=== PATIENT | male | born 1955 | race Caucasian/White ===

== ENCOUNTER → 2017-01-19 | Outpatient (REF) | payer OTHER ==
[~2017-01-19] MED LIST: ACET65TA OR; ADVIL OR; FLOM5CAP PO
[2017-01-19 15:54] LABS: ALBUMIN 3.7 GM/DL (3.2-5.2); ALBUMIN/GLOBULIN RATIO 1.16 (1.00-1.93); ALKALINE PHOSPHATASE 88 U/L (45-117); ALT/SGPT 19 U/L (12-78); ANION GAP 5 MEQ/L (8-16); AST/SGOT 14 U/L (15-37); BILIRUBIN,TOTAL 0.8 MG/DL (0.2-1.0); BLOOD UREA NITROGEN 18 MG/DL (7-18); CALCIUM LEVEL 8.5 MG/DL (8.8-10.2); CARBON DIOXIDE LEVEL 31 MEQ/L (21-32); CHLORIDE LEVEL 105 MEQ/L (98-107); CHOLESTEROL LEVEL 234 MG/DL (<200); GLOMERULAR FILTRATION RATE > 60.0 (>49); GLUCOSE, FASTING 71 MG/DL (80-110); SODIUM LEVEL 141 MEQ/L (136-145); TOTAL PROTEIN 6.9 GM/DL (6.4-8.2); TRIGLYCERIDES LEVEL 134 MG/DL (<150)
[2017-01-19 15:55] LABS: MEAN CORPUSCULAR HEMOGLOBIN 31.8 pg (27.0-33.0); MEAN CORPUSCULAR HGB CONC 34.5 g/dl (32.0-36.5); MEAN CORPUSCULAR VOLUME 92.2 fl (80.0-96.0); RED CELL DISTRIBUTION WIDTH 13.2 % (11.5-14.5); WHITE BLOOD COUNT 6.4 K/mm3 (4.0-10.0)
== END ==
LOC: M SFHCPLAZ 11:04
PROVIDERS: ATTEND Internal Medicine
DX: Z00.00 Encounter for general adult medical examination without abnormal findings (principal); E78.00 Pure hypercholesterolemia, unspecified; N40.1 Benign prostatic hyperplasia with lower urinary tract symptoms

== ENCOUNTER 2017-02-05 08:16 | Emergency (ER) | payer OTHER ==
[~2017-02-05] VITALS: Ht 172.7 cm; Wt 70.4 kg
[2017-02-05] MEDS ORDERED: MYRB25TA PO (08:27)
[2017-02-05 09:24] LABS: BASO % 0.7 % (0.0-1.0); EOS % 0.3 % (0.0-3.0); LARGE UNSTAINED CELL # 0.1 K/mm3 (0.0-0.4); LARGE UNSTAINED CELL % 1.5 % (0.0-4.0); LYMPH # 0.8 K/mm3 (1.5-4.5); LYMPH % 12.2 % (24.0-44.0); MEAN CORPUSCULAR HEMOGLOBIN 31.8 pg (27.0-33.0); MEAN CORPUSCULAR HGB CONC 34.7 g/dl (32.0-36.5); MEAN CORPUSCULAR VOLUME 91.7 fl (80.0-96.0); MONO # 0.3 K/mm3 (0.0-0.8); MONO % 4.1 % (0.0-5.0); NEUTROPHILS # 5.2 K/mm3 (1.8-7.7); NEUTROPHILS % 81.1 % (36.0-66.0); PLATELET COUNT, AUTOMATED 148 k/mm3 (150-450); WHITE BLOOD COUNT 6.4 K/mm3 (4.0-10.0)
[2017-02-05 09:38] LABS: ALBUMIN 3.7 GM/DL (3.2-5.2); ALBUMIN/GLOBULIN RATIO 1.19 (1.00-1.93); ALKALINE PHOSPHATASE 83 U/L (45-117); ALT/SGPT 18 U/L (12-78); ANION GAP 8 MEQ/L (8-16); AST/SGOT 14 U/L (15-37); BILIRUBIN,TOTAL 1.2 MG/DL (0.2-1.0); BLOOD UREA NITROGEN 17 MG/DL (7-18); CALCIUM LEVEL 8.7 MG/DL (8.8-10.2); CARBON DIOXIDE LEVEL 27 MEQ/L (21-32); CHLORIDE LEVEL 105 MEQ/L (98-107); CREATININE FOR GFR 1.01 MG/DL (0.70-1.30); GLOMERULAR FILTRATION RATE > 60.0 (>49); GLUCOSE, FASTING 108 MG/DL (80-110); POTASSIUM SERUM 3.8 MEQ/L (3.5-5.1); SODIUM LEVEL 140 MEQ/L (136-145); TOTAL PROTEIN 6.8 GM/DL (6.4-8.2)
--- NOTE | 2017-02-05 09:42 | REP ---
CT abdomen pelvis without IV or bowel contrast: Comparison is a CT of the pelvis dated 05/09/2010. On the comparison study there was a mass in the ascending colon. The patient has had an interim right hemicolectomy and there is a circumferential surgical staple ring in the proximal transverse colon compatible with enterocolostomy. There is no mesenteric or retroperitoneal adenopathy. There is no ascites. There is a Cruz catheter in the bladder and the bladder is collapsed. There is no hydronephrosis on the right on the left. The unenhanced kidneys are otherwise unremarkable. No renal calculi are identified. On the comparison study with IV contrast. There is a mass in the dome of the liver compatible with hemangioma. This mass is faintly visible on the study today without IV contrast and appears unchanged in size. The hepatic parenchyma is otherwise homogeneous and unremarkable. The gallbladder, pancreas and spleen are unremarkable. The visualized lung rainey are unremarkable except for dependent atelectasis. The adrenals and abdominal aorta and bowel are otherwise unremarkable. Pelvis: There is no ascites or adenopathy. There is a Cruz fat in the bladder. Impression: There is no hydronephrosis. There is a Cruz catheter in the bladder and the bladder is collapsed. There are no renal calculi. In the absence of IV contrast the study is insensitive for renal masses. There is a faintly visible low density mass in the dome of the liver, unchanged from the comparison study as discussed in the body of the report. There is no adenopathy or ascites. There has been a right hemicolectomy with an enterocolostomy in the proximal transverse colon. Signed by David Serrano MD 02/05/2017 09:34 A
[2017-02-05] MEDS ORDERED: BACT800T5 PO (09:48)
[2017-02-05 12:00] VITALS: BP 100/68
--- NOTE | 2017-02-05 18:59 | ED PDOC ---
Post-Departure Follow-Up dr lopez faxed formal report of ct abd/p for fu Doreen Montano MD Feb 05, 2017 18:59
[2017-03-10] MEDS ORDERED: CIAL20TA PO (09:21)
[2017-03-10] MEDS ORDERED: FLON1SPR (09:21)
[2017-03-10] MEDS ORDERED: CVS5TAB13 PO (10:03)
== END 2017-02-05 12:02 | disposition home or self-care (01) ==
LOC: M ED 09:00
DX: R33.9 Retention of urine, unspecified (principal); N40.0 Benign prostatic hyperplasia without lower urinary tract symptoms; E78.00 Pure hypercholesterolemia, unspecified; M54.9 Dorsalgia, unspecified; Z79.899 Other long term (current) drug therapy

== ENCOUNTER 2017-02-06 07:10 | Emergency (ER) | payer OTHER ==
[~2017-02-06] VITALS: Ht 172.7 cm; Wt 70.5 kg
[~2017-02-06 07:10] MED LIST changes: +BACT800T5 PO; +MYRB25TA PO
[2017-02-06 08:39] VITALS: BP 102/63
[2017-03-10] MEDS ORDERED: FLON1SPR (09:21)
[2017-03-10] MEDS ORDERED: CIAL20TA PO (09:21)
[2017-03-10] MEDS ORDERED: CVS5TAB13 PO (10:03)
== END 2017-02-06 08:50 | disposition home or self-care (01) ==
LOC: M ED 08:07
DX: R33.8 Other retention of urine (principal); N40.1 Benign prostatic hyperplasia with lower urinary tract symptoms; Z79.899 Other long term (current) drug therapy

== ENCOUNTER → 2017-02-26 | Outpatient (CLI) | payer OTHER ==
[~2017-02-26] MED LIST changes: +CIAL20TA PO; +CIPR500T3; +CVS5TAB13 PO; +FLON1SPR; +NORCOTAB PO; +ONDA4TAB5
[2017-02-26 10:45] LABS: MEAN CORPUSCULAR HEMOGLOBIN 31.7 pg (27.0-33.0); MEAN CORPUSCULAR HGB CONC 34.4 g/dl (32.0-36.5); MEAN CORPUSCULAR VOLUME 92.2 fl (80.0-96.0); WHITE BLOOD COUNT 5.5 K/mm3 (4.0-10.0)
[2017-02-26 10:53] LABS: INR 1.08
[2017-02-26 11:10] LABS: ANION GAP 4 MEQ/L (8-16); BLOOD UREA NITROGEN 23 MG/DL (7-18); CALCIUM LEVEL 8.8 MG/DL (8.8-10.2); CARBON DIOXIDE LEVEL 31 MEQ/L (21-32); CHLORIDE LEVEL 105 MEQ/L (98-107); GLOMERULAR FILTRATION RATE > 60.0 (>49); GLUCOSE, FASTING 103 MG/DL (80-110); POTASSIUM SERUM 4.3 MEQ/L (3.5-5.1); SODIUM LEVEL 140 MEQ/L (136-145)
--- NOTE | 2017-02-26 15:26 | ECGEPIP ---
Stationary ECG Study [facility] Test Date: 2017-02-26 Pat Name: SEDRICK MCLEAN Department: Room: - Gender: M [employer]: LEO : 1955 Requested By: REINA Borja Order Number: [id number] Reading MD: Garland Abebe Measurements Intervals [place] Rate: 68 P: 49 WI: 156 QRS: 58 QRSD: 91 T: 57 QT: 378 QTc: 405 Interpretive Statements SINUS RHYTHM Within normal limits. No prior ECG available for comparison at the time of interpretation. Electronically Signed On 02-26-2017 15:26:16 EDT by Garland Abebe
--- NOTE | 2017-02-27 06:32 | REP ---
Clinical: Colon polyp/mass. Technique: PA and lateral. Comparison: 06/21/2010. Findings: Mediastinum and cardiac silhouette are stable. Chronic interstitial changes are appreciated with superimposed scattered alveolar and reticulonodular infiltrates. No effusion. No pneumothorax. Skeletal structures intact. Impression: Diffuse bilateral subtle alveolar and reticulonodular interstitial infiltrates. Correlation with auscultation and chest CT are recommended. Signed by Kishan Maciel MD 02/27/2017 03:14 A
== END ==
LOC: M LAB 10:00
PROVIDERS: ATTEND Urology
DX: Z01.812 Encounter for preprocedural laboratory examination (principal); N40.1 Benign prostatic hyperplasia with lower urinary tract symptoms; R91.8 Other nonspecific abnormal finding of lung field

== ENCOUNTER → 2017-03-04 | Outpatient (CLI) | payer OTHER ==
--- NOTE | 2017-03-04 10:03 | REP ---
CT STUDY OF THE CHEST WITHOUT CONTRAST: HISTORY: Abnormal chest x-ray. Comparison chest x-ray February 26, 2017. There is also a chest x-ray reviewed from June 21, 2010. CT FINDINGS: Lung window settings confirm the presence of innumerable reticulonodular opacities scattered throughout the upper and lower lobes bilaterally. These are predominantly distributed in a dayne bronchovascular pattern. The largest nodular opacity is in the left upper lobe measuring 8 mm. There is fairly extensive bilateral hilar and mediastinal lymphadenopathy with multiple calcifications noted within most of the enlarged lymph nodes. No anterior mediastinal adenopathy is seen. The spleen are normal in size and homogeneous as visualized. There is a low-density lesion in the dome of the liver in the right lobe. This it is unchanged from the [address] study of the abdomen when it was felt to be compatible with a hemangioma. The visualized upper abdominal structures are otherwise unremarkable. No bony destructive lesion is seen. IMPRESSION: Bilateral hilar and mediastinal lymphadenopathy with lymph node calcification. Multiple reticulonodular densities throughout the lung rainey. Findings are most compatible with sarcoidosis but other granulomatous disease and fungal disease would be a possibility as well. Signed by Bacilio Larkin MD 03/04/2017 10:49 A
== END ==
LOC: M RAD 07:55
PROVIDERS: ATTEND Internal Medicine
DX: R93.8 Abnormal findings on diagnostic imaging of other specified body structures (principal)

== ENCOUNTER → 2017-03-10 | Outpatient (REF) | payer OTHER | LOC: M SFHCPLAZ 12:19 | PROVIDERS: ATTEND Internal Medicine | DX: D86.9 Sarcoidosis, unspecified (principal) ==

== ENCOUNTER → 2017-03-12 | Outpatient (REF) | payer OTHER | LOC: M SMT 15:14 | PROVIDERS: ATTEND Urology | DX: Z01.812 Encounter for preprocedural laboratory examination (principal); N40.1 Benign prostatic hyperplasia with lower urinary tract symptoms; N39.0 Urinary tract infection, site not specified ==

== ENCOUNTER → 2017-03-16 | Day surgery (SDC) | payer OTHER ==
[~2017-03-16] VITALS: Ht 172.7 cm; Wt 70.3 kg
[~2017-03-16] MED LIST changes: +FUROSEMIDE 100 MG/10 ML VIAL (J1940) As Ordered ONE; +GLYCOPYRROLATE INJ 0.2 MG/ML 2 ML VIAL As Ordered ONE; +LIDOCAINE 2% INJ 100 MG/5 ML SDV (FOR ANES.) As Ordered ONE; +LR 1,000 ML IV SCH; +MIDAZOLAM INJ 2 MG/2 ML VIAL (J2250) As Ordered ONE; +NEOSTIGMINE 1MG/ML 5 ML SYRINGE (J2710) As Ordered ONE; +ONDANSETRON 4MG/2ML VIAL (J2405) As Ordered ONE; +ONDANSETRON 4MG/2ML VIAL (J2405) IV PRN; +PHENYLephrine HCL 500 MCG/5 ML (100MCG/ML) SYRINGE (J2370) As Ordered ONE; +PROPOFOL 200 MG/20 ML VIAL As Ordered ONE; +ROCURONIUM BROMIDE 50 MG/5 ML VIAL/SYRINGE As Ordered ONE; +dexameTHASONE 4 MG/ML 1ML VIAL (J1100) As Ordered ONE; +ePHEDrine SULFATE 25 MG/5 ML(5MG/ML) SYRINGE As Ordered ONE; +fentaNYL 100 MCG/2 ML INJECTION (J3010) As Ordered ONE; +fentaNYL 100 MCG/2 ML INJECTION (J3010) IV PRN; +fentaNYL 250 MCG/5 ML INJECTION (J3010) As Ordered ONE
[2017-03-16 14:52] VITALS: BP 100/66
--- NOTE | 2017-03-17 10:49 | RO ---
DATE OF PROCEDURE: 03/16/2017 PREPROCEDURE DIAGNOSIS: Benign prostatic hyperplasia with urinary retention. POSTPROCEDURE DIAGNOSIS: Benign prostatic hyperplasia with urinary retention. PROCEDURE: Cystoscope, button transurethral electrovaporization of the prostate. SURGEON: Fabrice Frankel MD PHLEBOTOMY TECHNOLOGIST: None ANESTHESIA: General. OPERATIVE INDICATIONS: This is a 62-year-old male with benign prostatic hyperplasia with urinary retention requiring catheterization. He has failed medical therapy. It was recommended that he be brought to the operating room today for the above listed procedure. DESCRIPTION OF PROCEDURE: The patient was brought to the operating room and general anesthesia was induced. Prophylactic antibiotics were infused. He was then placed in the dorsal lithotomy position and prepped and draped in the usual sterile fashion. A rigid cystoscope was inserted into the urethral meatus and advanced to the bladder. Once within the bladder, the patient notably had a trilobar benign prostatic hyperplasia with a very prominent median lobe going in toward the bladder. At this point, the cystoscope was traded out for a button resectoscope. I made note of bilateral ureteral orifices, as well as the location of the verumontanum. The ureteral orifices were not close to the bladder neck. At this point, I began vaporizing hyperplastic tissue, beginning first on the median lobe and then circumferentially at the bladder neck. I then started working on both lateral lobes. I kept doing this until there was a clean channel established. Throughout the procedure, I made sure not to vaporize too close to the ureteral orifices or distal to the verumontanum. Once there was a clear channel established, hemostasis was obtained using coagulation current. Once hemostasis was good, the scope was removed and a #20 Irish catheter was inserted into the bladder. The balloon was filled with 15 mL of sterile water and fluid drained clear at the end of the procedure. The catheter was then connected to gravity drainage. This marked conclusion of the procedure. The patient was taken out of dorsal lithotomy position, awakened from anesthesia and transported to the recovery room in stable condition. ESTIMATED BLOOD LOSS: 15 mL. COMPLICATIONS: None. SPECIMENS: None. PLAN: The patient will be discharged home with his catheter in place. He will followup in the clinic in 1 week for a catheter removal. ETIENNE
== END ==
LOC: M SDC 05:42
PROVIDERS: ATTEND Urology
DX: N40.1 Benign prostatic hyperplasia with lower urinary tract symptoms (principal); N45.1 Epididymitis; R35.1 Nocturia; R33.8 Other retention of urine; L30.9 Dermatitis, unspecified; F41.9 Anxiety disorder, unspecified; F32.9 Major depressive disorder, single episode, unspecified; Z86.19 Personal history of other infectious and parasitic diseases; Z96.0 Presence of urogenital implants; Z79.899 Other long term (current) drug therapy

== ENCOUNTER 2017-03-21 10:36 | Emergency (ER) | payer OTHER ==
[~2017-03-21] VITALS: Ht 172.7 cm; Wt 68.2 kg
[~2017-03-21 10:36] MED LIST changes: -CIPR500T3; -FUROSEMIDE 100 MG/10 ML VIAL (J1940) As Ordered ONE; -GLYCOPYRROLATE INJ 0.2 MG/ML 2 ML VIAL As Ordered ONE; -LIDOCAINE 2% INJ 100 MG/5 ML SDV (FOR ANES.) As Ordered ONE; -LR 1,000 ML IV SCH; -MIDAZOLAM INJ 2 MG/2 ML VIAL (J2250) As Ordered ONE; -NEOSTIGMINE 1MG/ML 5 ML SYRINGE (J2710) As Ordered ONE; -NORCOTAB PO; -ONDA4TAB5; -ONDANSETRON 4MG/2ML VIAL (J2405) As Ordered ONE; -ONDANSETRON 4MG/2ML VIAL (J2405) IV PRN; -PHENYLephrine HCL 500 MCG/5 ML (100MCG/ML) SYRINGE (J2370) As Ordered ONE; -PROPOFOL 200 MG/20 ML VIAL As Ordered ONE; -ROCURONIUM BROMIDE 50 MG/5 ML VIAL/SYRINGE As Ordered ONE; -dexameTHASONE 4 MG/ML 1ML VIAL (J1100) As Ordered ONE; -ePHEDrine SULFATE 25 MG/5 ML(5MG/ML) SYRINGE As Ordered ONE; -fentaNYL 100 MCG/2 ML INJECTION (J3010) As Ordered ONE; -fentaNYL 100 MCG/2 ML INJECTION (J3010) IV PRN; -fentaNYL 250 MCG/5 ML INJECTION (J3010) As Ordered ONE
[2017-03-21] MEDS ORDERED: CIPR500T3 (10:44)
[2017-03-21] MEDS ORDERED: ONDA4TAB5 (10:44)
[2017-03-21] MEDS ORDERED: NORCOTAB PO (12:32)
[2017-03-21 13:05] VITALS: BP 116/80
--- NOTE | 2017-03-23 16:20 | REP ---
SCROTAL ULTRASOUND: 03/21/2017. Comparison: 03/01/2013. Clinical history: Left testicular swelling intermittently for 3 months. Some pain. Findings: Sonographic evaluation of the scrotum and contents show the right testis 3.9 x 1.2 x 2.3 cm with a calculated volume of 6 ml. It is slightly heterogeneous and the mediastinum testis shows some minor cystic changes. Doppler tracing shows resistive index 0.39 on the right. The left testis is 3.6 x 2.2 x 2.9 cm with testicular volume 12 ml. In the left testis is 2 x 2 x 3 mm cyst. There are small cysts along the mediastinum testis on the left side as well. Doppler tracing shows resistive index 0.39 on that left side. There is a small left hydrocele present. I do not see microlithiasis. No right hydrocele. CC diameter of the epididymal head on the right is 6 mm, on the left 34 mm. Multiple epididymal head cysts or spermatoceles noted. The largest 1.6 x 1.2 x 1.1 cm. On the previous study, the largest epididymal head cyst was 1 x 0.9 cm. All of them appear increased in size. On the right side, there have been resection of the epididymal head cyst or complex cystic mass since the previous study. Impression: 1. Compared to 2012, there are enlarging epididymal head cysts. There are spermatoceles on the left, largest up to 1.6 x 1.2 x 1.1 cm from previous 1 x 0.9 cm. 2. Slight heterogeneity to the right testis compared to the left. Both testes show cystic changes in the mediastinum testis and there is a small 3 x 2 mm cyst in the left testis. 3. Normal Doppler tracing without evidence of torsion. 4. Small left hydrocele. Signed by Kian Heath MD 03/23/2017 05:13 P
--- NOTE | 2017-03-24 09:51 | ED PDOC ---
Post-Departure Follow-Up radiology report faxed to Kristal Sharpe MD Mar 24, 2017 09:51
== END 2017-03-21 13:08 | disposition home or self-care (01) ==
LOC: M ED 10:36
DX: N43.3 Hydrocele, unspecified (principal); N50.3 Cyst of epididymis; N40.0 Benign prostatic hyperplasia without lower urinary tract symptoms; E78.00 Pure hypercholesterolemia, unspecified; M54.9 Dorsalgia, unspecified; F41.9 Anxiety disorder, unspecified; F33.8 Other recurrent depressive disorders; Z85.46 Personal history of malignant neoplasm of prostate; Z79.899 Other long term (current) drug therapy

== ENCOUNTER → 2017-04-24 | Outpatient (REF) | payer OTHER ==
[~2017-04-24] MED LIST changes: +CIPR500T3; +NORCOTAB PO; +ONDA4TAB5
[2017-04-24 14:33] LABS: BASO # 0.1 K/mm3 (0.0-0.2); BASO % 1.1 % (0.0-1.0); EOS # 0.1 K/mm3 (0.0-0.50); EOS % 1.5 % (0.0-3.0); LARGE UNSTAINED CELL # 0.1 K/mm3 (0.0-0.4); LARGE UNSTAINED CELL % 1.7 % (0.0-4.0); LYMPH # 0.9 K/mm3 (1.5-4.5); LYMPH % 15.9 % (24.0-44.0); MEAN CORPUSCULAR HEMOGLOBIN 32.1 pg (27.0-33.0); MEAN CORPUSCULAR HGB CONC 34.6 g/dl (32.0-36.5); MEAN CORPUSCULAR VOLUME 92.7 fl (80.0-96.0); MONO # 0.3 K/mm3 (0.0-0.8); MONO % 5.6 % (0.0-5.0); NEUTROPHILS # 4.3 K/mm3 (1.8-7.7); NEUTROPHILS % 74.2 % (36.0-66.0); PLATELET COUNT, AUTOMATED 169 k/mm3 (150-450); RED CELL DISTRIBUTION WIDTH 13.6 % (11.5-14.5); WHITE BLOOD COUNT 5.8 K/mm3 (4.0-10.0)
[2017-04-24 14:34] LABS: ALBUMIN/GLOBULIN RATIO 1.11 (1.00-1.93); ALKALINE PHOSPHATASE 110 U/L (45-117); ALT/SGPT 43 U/L (12-78); AST/SGOT 26 U/L (15-37); BILIRUBIN,DIRECT 0.2 MG/DL (0.0-0.2); CALCIUM LEVEL 9.2 MG/DL (8.8-10.2); CREATININE FOR GFR 0.85 MG/DL (0.70-1.30); GLOMERULAR FILTRATION RATE > 60.0 (>49); TOTAL PROTEIN 7.6 GM/DL (6.4-8.2)
[2017-04-29 00:06] LABS: BLASTOMYCES ANTIBODY LEVEL Negative (Neg:<1:1); CRYPTOCOCCUS ANTIGEN SER Negative (Negative); HISTOPLASMOSIS ANTIBODY Negative (Neg:<1:1); VITAMIN D 1,25 DIHYDROXY 63.6 pg/mL (19.9-79.3)
[2017-04-30 16:07] LABS: COCCIDIOMYCOSIS ANTIBODY NEGATIVE (NEGATIVE)
== END ==
LOC: M LAB REF 12:59
PROVIDERS: ATTEND Internal Medicine Pulmonary Disease
DX: R91.8 Other nonspecific abnormal finding of lung field (principal)

== ENCOUNTER → 2017-10-06 | Outpatient (CLI) | payer OTHER | LOC: M RAD 08:19 | DX: R91.8 Other nonspecific abnormal finding of lung field (principal) | CPT/HCPCS: 71250 ==

== ENCOUNTER → 2018-02-23 | Outpatient (REF) | payer OTHER ==
[2018-02-23 10:51] LABS: HEMATOCRIT 46.9 % (42.0-52.0); HEMOGLOBIN 15.7 g/dl (13.5-17.5); MEAN CORPUSCULAR HEMOGLOBIN 31.2 pg (27.0-33.0); MEAN CORPUSCULAR HGB CONC 33.5 g/dl (32.0-36.5); MEAN CORPUSCULAR VOLUME 93.2 fl (80.0-96.0); PLATELET COUNT, AUTOMATED 169 10^3/uL (150-450); RED BLOOD COUNT 5.03 10^6/uL (4.30-6.10); RED CELL DISTRIBUTION WIDTH 13.4 % (11.5-14.5)
[2018-02-23 11:17] LABS: ALBUMIN/GLOBULIN RATIO 1.18 (1.00-1.93); ALKALINE PHOSPHATASE 101 U/L (45-117); ALT/SGPT 26 U/L (12-78); ANION GAP 6 MEQ/L (8-16); AST/SGOT 14 U/L (7-37); BILIRUBIN,TOTAL 0.8 MG/DL (0.2-1.0); BLOOD UREA NITROGEN 22 MG/DL (7-18); CALCIUM LEVEL 8.8 MG/DL (8.8-10.2); CARBON DIOXIDE LEVEL 30 MEQ/L (21-32); CHLORIDE LEVEL 106 MEQ/L (98-107); CHOLESTEROL LEVEL 245 MG/DL (<200); CHOLESTEROL RISK RATIO 4.375 (<5); CREATININE FOR GFR 0.94 MG/DL (0.70-1.30); GLOMERULAR FILTRATION RATE > 60.0 (>49); GLUCOSE, FASTING 96 MG/DL (70-100); HDL CHOLESTEROL 56 MG/DL (>40); NON-HDL-C 189 MG/DL; SODIUM LEVEL 142 MEQ/L (136-145); TOTAL PROTEIN 7.4 GM/DL (6.4-8.2); TRIGLYCERIDES LEVEL 150 MG/DL (<150)
== END ==
LOC: M SFHCPLAZ 08:06
DX: D86.9 Sarcoidosis, unspecified (principal); E78.00 Pure hypercholesterolemia, unspecified
CPT/HCPCS: 80053

== ENCOUNTER → 2019-02-28 | Outpatient (CLI) | payer MEDICARE ==
[~2019-02-28] MED LIST changes: -CVS5TAB13 PO; +FLOM0.4C39 PO; -FLOM5CAP PO; +HYDR-3715 PO; +MELA1TAB9 PO; -NORCOTAB PO
== END ==
LOC: M SMT 14:27
PROVIDERS: ATTEND Nurse Practitioner Family
DX: Z12.5 Encounter for screening for malignant neoplasm of prostate (principal)
CPT/HCPCS: 36415; G0103

== ENCOUNTER → 2019-02-28 | Outpatient (REF) | payer MEDICARE ==
[2019-02-28 19:20] LABS: APPEARANCE, URINE MANUAL TURBID (CLEAR)
[2019-02-28 19:21] LABS: COLOR, URINE MANUAL DK YELLOW (YELLOW); GLUCOSE, URINE (UA) MANUAL NEGATIVE (NEGATIVE); PH,URINE MAN 5.5 UNITS (5.0 - 7.0); PROTEIN, URINE MANUAL NEGATIVE (NEGATIVE); SPECIFIC GRAVITY,URINE MANUAL 1.025 (1.002-1.035)
[2019-02-28 19:22] LABS: BILIRUBIN, URINE MANUAL NEGATIVE (NEGATIVE); BLOOD URINE MANUAL NEGATIVE (NEGATIVE); KETONE, URINE MANUAL 1+ mg/dL (NEGATIVE); LEUKOCYTE ESTERASE, URINE MAN TRACE (NEGATIVE); NITRITE, URINE MANUAL NEGATIVE (NEGATIVE); UROBILINOGEN, URINE MANUAL NORMAL (NORMAL)
[2019-02-28 20:52] LABS: AMORPHOUS SEDIMENT, URINE LARGE AMOUNT (NEGATIVE); BACTERIA, URINE NONE SEEN; CALCIUM OXALATE CRYSTALS,URINE SMALL AMOUNT /hpf; HYALINE CAST, URINE NONE SEEN /lpf (0-1); RBC, URINE 0-1 /hpf (0-3); SQUAMOUS EPITHELIAL CELL URINE NONE SEEN /hpf (SMALL AMT)
[2019-02-28 20:53] LABS: WBC, URINE NONE SEEN /hpf (0-3)
== END ==
LOC: M SMT 18:32
PROVIDERS: ATTEND Nurse Practitioner Family
DX: R39.15 Urgency of urination (principal)

== ENCOUNTER → 2019-03-14 | Outpatient (CLI) | payer MEDICARE ==
[2019-03-16 00:06] LABS: SSA SJOGRENS A <0.2 AI (0.0-0.9); SSB SJOGRENS B <0.2 AI (0.0-0.9)
== END ==
LOC: M LAB 12:05
PROVIDERS: ATTEND Otolaryngology
DX: M35.00 Sjogren syndrome, unspecified (principal)

== ENCOUNTER → 2019-04-14 | Outpatient (REF) | payer MEDICARE ==
[2019-04-14 13:36] LABS: FOLATE > 24.0 NG/ML (>5.4); VITAMIN B12 LEVEL 382 PG/ML (247-911)
[2019-04-18 00:06] LABS: CERULOPLASMIN 19.9 mg/dL (16.0-31.0); VITAMIN B1 LEVEL WHOLE BLOOD 157.1 nmol/L (66.5-200.0); VITAMIN B6,PYRIDOXAL PHOSPHATE 29.9 ug/L (5.3-46.7); VITAMIN E(ALPHA TOCOPHEROL) 13.6 mg/L (9.0-29.0); VITAMIN E(GAMMA TOCOPHEROL) 1.1 mg/L (0.5-4.9)
== END ==
LOC: M LABDRAWP 10:27
PROVIDERS: ATTEND Psychiatry & Neurology Neurology
DX: D51.9 Vitamin B12 deficiency anemia, unspecified (principal); E83.01 Wilson's disease; R26.9 Unspecified abnormalities of gait and mobility

== ENCOUNTER 2019-08-25 09:24 | Day surgery (SDC) | payer MEDICARE ==
[~2019-08-25] VITALS: Ht 172.7 cm; Wt 70.7 kg
[~2019-08-25 09:24] MED LIST changes: +NS 1,000 ML IV SCH; +ONDA-83; -ONDA4TAB5; +SINE25TA5 PO
[2019-08-25] MEDS ORDERED: propofoL 200 MG/20 ML VIAL As Ordered ONE (10:04)
[2019-08-25] MEDS ORDERED: LIDOCAINE 2% INJ 100 MG/5 ML SDV (FOR ANES.) As Ordered ONE (10:05)
--- NOTE | 2019-08-25 11:15 | ROOR ---
Patient Name: Vincent Monteiro Procedure Date: 08/25/2019 10:53 AM Date of : 1955 Age: 64 Room: [facility] Gender: Male Note Status: Finalized Procedure: Colonoscopy Indications: High risk colon cancer surveillance: Personal history of colon cancer Providers: Titus Allen Jr, MD Referring MD: Julio Cesar Reyes MD Requesting Provider: Medicines: Propofol per Anesthesia Complications: No immediate complications. Procedure: Pre-Anesthesia Assessment: - Prior to the procedure, a History and Physical was performed, and patient medications and allergies were reviewed. The patient is competent. The risks and benefits of the procedure and the sedation options and risks were discussed with the patient. All questions were answered and informed consent was obtained. Patient identification and proposed procedure were verified by the physician and the nurse in the pre-procedure area and in the procedure room. Mental Status Examination: alert and oriented. Airway Examination: normal oropharyngeal airway and neck mobility. Respiratory Examination: clear to auscultation. CV Examination: normal. ASA Grade Assessment: II - A patient with mild systemic disease. After reviewing the risks and benefits, the patient was deemed in satisfactory condition to undergo the procedure. The anesthesia plan was to use moderate sedation / analgesia (conscious sedation). Immediately prior to administration of medications, the patient was re-assessed for adequacy to receive sedatives. The heart rate, respiratory rate, oxygen saturations, blood pressure, adequacy of pulmonary ventilation, and response to care were monitored throughout the procedure. The physical status of the patient was re-assessed after the procedure. The Colonoscope was introduced through the anus and advanced to the ileocolonic anastomosis. The colonoscopy was performed without difficulty. The patient tolerated the procedure well. The quality of the bowel preparation was adequate. Findings: The recto-sigmoid colon, sigmoid colon, descending colon, transverse colon, ascending colon and anastomosis appeared normal. A diminutive polyp was found in the recto-sigmoid colon. The polyp was removed with a cold snare. Resection and retrieval were complete. Impression: - The recto-sigmoid colon, sigmoid colon, descending colon, transverse colon, ascending colon and colonic anastomosis are normal. - One diminutive polyp at the recto-sigmoid colon, removed with a cold snare. Resected and retrieved. Recommendation: - Discharge patient to home (ambulatory). - Repeat colonoscopy in 5-10 years for surveillance based on pathology results. Titus Allen MD Titus Allen Jr, MD 08/25/2019 11:14:46 AM Electronically signed by Titus Allen Jr, MD Number of Addenda: 0 Note Initiated On: 08/25/2019 10:53 AM Estimated Blood Loss: Estimated blood loss: none.
[2019-08-25 11:40] VITALS: BP 105/71
== END 2019-08-25 11:50 | disposition home or self-care (01) ==
LOC: M OPP 09:24
PROVIDERS: ATTEND Surgery
DX: Z85.038 Personal history of other malignant neoplasm of large intestine (principal); D12.7 Benign neoplasm of rectosigmoid junction; K21.9 Gastro-esophageal reflux disease without esophagitis; L30.9 Dermatitis, unspecified; F41.9 Anxiety disorder, unspecified; F32.9 Major depressive disorder, single episode, unspecified; G20 Parkinson's disease; G47.30 Sleep apnea, unspecified; Z80.0 Family history of malignant neoplasm of digestive organs; Z79.899 Other long term (current) drug therapy; Z90.49 Acquired absence of other specified parts of digestive tract

== ENCOUNTER → 2024-12-28 | Outpatient (CLI) | payer MEDICARE ==
[~2024-12-28] MED LIST changes: +CARB-113 PO; -FLOM0.4C39 PO; -MELA1TAB9 PO; +MELA5TAB58 PO; -NS 1,000 ML IV SCH; -SINE25TA5 PO; +TAMS-18 PO
== END ==
LOC: M PLALAB 11:58
PROVIDERS: ATTEND Physician Assistant
DX: Z12.5 Encounter for screening for malignant neoplasm of prostate (principal)
CPT/HCPCS: 36415; G0103

== ENCOUNTER → 2024-12-28 | Outpatient (CLI) | payer MEDICARE ==
[2024-12-28 14:46] LABS: HEMATOCRIT 44.5 % (42.0-52.0); HEMOGLOBIN 14.7 g/dl (13.5-17.5); MEAN CORPUSCULAR HEMOGLOBIN 32.2 pg (27.0-33.0); MEAN CORPUSCULAR VOLUME 97.4 fl (80.0-96.0); PLATELET COUNT, AUTOMATED 161 10^3/uL (150-450); RED BLOOD COUNT 4.57 10^6/uL (4.30-6.10); WHITE BLOOD COUNT 7.2 10^3/uL (4.0-10.0)
[2024-12-28 15:11] LABS: PSA SCREENING 0.82 NG/ML (< 4.00)
[2024-12-28 15:18] LABS: ALBUMIN 3.8 G/DL (3.2-5.2); ALKALINE PHOSPHATASE 91 U/L (40-129); ALT/SGPT 10 U/L (7.0-40); AST/SGOT 16 U/L (<34); BILIRUBIN,TOTAL 0.8 MG/DL (0.3-1.2); BLOOD UREA NITROGEN 22 MG/DL (9-23); CALCIUM LEVEL 8.9 MG/DL (8.3-10.6); CARBON DIOXIDE LEVEL 31 MMOL/L (20-31); CHLORIDE LEVEL 104 MMOL/L (98-107); CHOLESTEROL LEVEL 223 MG/DL (<200); CHOLESTEROL RISK RATIO 3.95 (<5); CREATININE FOR GFR 0.85 MG/DL (0.70-1.30); GLOMERULAR FILTRATION RATE > 90.0 (>42); GLUCOSE, FASTING 83 MG/DL (74-106); HDL CHOLESTEROL 56.4 MG/DL (>40); LDL CHOLESTEROL 136.6 MG/DL (<100); NON-HDL-C 166.6 MG/DL; POTASSIUM SERUM 4.3 MMOL/L (3.5-5.1); SODIUM LEVEL 143 MMOL/L (136-145); TOTAL PROTEIN 6.6 G/DL (5.7-8.2); TRIGLYCERIDES LEVEL 150 MG/DL (<150)
== END ==
LOC: M PLALAB 11:55
DX: Z82.49 Family history of ischemic heart disease and other diseases of the circulatory system (principal); Z86.39 Personal history of other endocrine, nutritional and metabolic disease; E78.00 Pure hypercholesterolemia, unspecified; Z12.5 Encounter for screening for malignant neoplasm of prostate
CPT/HCPCS: 36415; 80053; 80061; 85027; G0103

== ENCOUNTER → 2024-12-30 | Outpatient (REF) | payer MEDICARE | LOC: M SFHCPLAZ 19:37 | DX: Z53.9 Procedure and treatment not carried out, unspecified reason (principal) ==

== ENCOUNTER → 2025-02-28 | Outpatient (REF) | payer MEDICARE | LOC: M SFHCPLAZ 12:09 | PROVIDERS: ATTEND Family Medicine | DX: Z53.9 Procedure and treatment not carried out, unspecified reason (principal) ==

== ENCOUNTER → 2025-03-07 | Outpatient (CLI) | payer MEDICARE ==
[2025-03-07 11:15] LABS: CHOLESTEROL LEVEL 201.0 MG/DL (<200); CHOLESTEROL RISK RATIO 4.17 (<5); FREE T4 1.05 NG/DL (0.89-1.76); LDL CHOLESTEROL 136.3 MG/DL (<100); NON-HDL-C 152.9 MG/DL; TRIGLYCERIDES LEVEL 83.0 MG/DL (<150)
[2025-03-07 11:28] LABS: ESTIMATED AVERAGE GLUCOSE 103.0 MG/DL (60-110)
== END ==
LOC: M PLALAB 09:04
DX: Z13.29 Encounter for screening for other suspected endocrine disorder (principal); E78.00 Pure hypercholesterolemia, unspecified